=== PATIENT | female | born 1975 | race Two or more races ===

== ENCOUNTER 2018-09-28 07:00 | Day surgery (SDC) | payer OTHER ==
[~2018-09-28] VITALS: Ht 180.3 cm; Wt 77.1 kg
[2018-09-28] MEDS ORDERED: PERCOCET 5-3251 EACH PO (09:26)
[2018-09-28] MEDS ORDERED: PEPCID20 MG PO (09:27)
[2018-09-28] MEDS ORDERED: ZOFRAN ODT4 MG PO (09:27)
[2018-09-28] MEDS ORDERED: KETO10TA2 PO (09:28)
== END 2018-09-28 13:00 | disposition home or self-care (01) ==
LOC: CIR.AMB 07:00 → O/R 14:05 → SURH 15:48 → EDSTATUS 20:45
DX: D49.0 Neoplasm of unspecified behavior of digestive system (principal)

== ENCOUNTER 2018-12-16 09:45 | Inpatient (IN) | payer OTHER ==
[~2018-12-16] VITALS: Ht 180.3 cm; Wt 74.8 kg
[~2018-12-16 09:45] MED LIST: KETO10TA2 PO; PEPCID20 MG PO; PERCOCET 5-3251 EACH PO; ZOFRAN ODT4 MG PO
[2018-12-16] MEDS ORDERED: OMEPRAZOLE20 MG PO (12:12)
[2018-12-24] MEDS ORDERED: OXYC1TAB9 PO (13:34)
== END 2018-12-24 14:43 | disposition home or self-care (01) | DRG 330 ==
LOC: EDSTATUS 09:45 → ADM 09:45 → O/R 12-21 06:50 → SURH 12-21 06:50
PROVIDERS: ADMIT Surgery
PROC: 07TD4ZZ Resection of Aortic Lymphatic, Percutaneous Endoscopic Approach (ICD-10-PCS; 2018-12-21)
PROC: 0DTF4ZZ Resection of Right Large Intestine, Percutaneous Endoscopic Approach (ICD-10-PCS; principal; 2018-12-21 13:00)
DX: C18.1 Malignant neoplasm of appendix (principal); C77.2 Secondary and unspecified malignant neoplasm of intra-abdominal lymph nodes; R93.5 Abnormal findings on diagnostic imaging of other abdominal regions, including retroperitoneum; R59.0 Localized enlarged lymph nodes; M62.838 Other muscle spasm